=== PATIENT | female | born 1990 ===

== ENCOUNTER 2017-12-28 15:54 | Emergency (ER) | payer MEDICAID, OTHER ==
[2017-12-28 16:04] VITALS: BP 108/68; PULSE 80; RESP 20; TEMP 98.1; O2SAT 100
[2017-12-28] MEDS ORDERED: Apap-Butalbital-Caffeine 325-50-40mg Tab PO STA (16:57)
[2017-12-28] MEDS ORDERED: Apap-Butalbital-Caffeine 325-50-40mg Tab ONE (17:13)
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
== END 2017-12-28 17:44 | disposition home or self-care (01) ==
LOC: C.ER 15:54
DX: R51 Headache (principal); V43.62XA Car passenger injured in collision with other type car in traffic accident, initial encounter; Y92.410 Unspecified street and highway as the place of occurrence of the external cause
CPT/HCPCS: 96372; 99285; J1885